=== PATIENT | female | born 1955 | race Caucasian/White ===

== ENCOUNTER → 2017-03-22 | Outpatient (CLI) | payer SELFPAY ==
[~2017-03-22] MED LIST: ISOPTIN SR TAB120 MG PO; LIPITOR DPS20 MG PO; MAALOX DPS30 ML PO; NICOTINE PATCH1 EAC5 TD; NORCO 5-325 TA1 EACH PO; OYSTER SHELL C500 MG PO; SURFAK DPS240 MG PO; TYLENOL DPS325 MG PO; VITAMIN D-32000 UNI1 PO; XANAX DPS0.5 MG PO
== END | disposition home or self-care (01) ==
LOC: RAD.S 10:40
DX: F17.210 Nicotine dependence, cigarettes, uncomplicated (principal); R91.8 Other nonspecific abnormal finding of lung field

== ENCOUNTER 2017-06-16 09:48 | Observation (INO) | payer SELFPAY ==
[~2017-06-16] VITALS: Ht 160 cm; Wt 46.6 kg
--- NOTE | 2017-06-17 13:05 | CO ---
ADMIT: 06/16/2017 RM/LOC: 523 [facility] MR#: [id number] 2620 [facility] [address] [place], [place] [address] MY NORRIS [address] [place] [address] Consultation SEX: F AGE: 61 : 1955 DATE OF CONSULTATION: 06/16/2017 ATTENDING PHYSICIAN: Colby Fajardo CONSULTING PHYSICIAN: Gerhard Crabtree MD REASON FOR CONSULTATION: Partial trauma. HISTORY OF PRESENT ILLNESS: My is a very pleasant, 61-year-old female, who apparently was in her house yesterday and going downstairs to do laundry where she fell. It appeared she fell on her left side developing left upper extremity and left hip pain. At that time, she just tried resting, but the pain did not resolve, so she decided to seek medical attention in our Emergency Department. Today, she was fully worked up to reveal a left radial fracture, superior and inferior rami fracture with communication to the acetabulum. She denies hitting her head or any loss of consciousness. She further denies any nausea, vomiting, lacerations abrasions, or double vision. PAST MEDICAL HISTORY: Significant for hypertension. PAST SURGICAL HISTORY: 1. Left wrist fracture as a kid. 2. T and A. ALLERGIES: ERYTHROMYCIN, TETRACYCLINE, AND SULFA. MEDICATIONS: Well documented in chart. FAMILY HISTORY: Noncontributory. SOCIAL HISTORY: The patient is a tobacco and alcohol user. Smokes about a pack a day and drinks the equivalent of six pack per week, but denies any illicit drug use. REVIEW OF SYSTEMS: CONSTITUTIONAL: The patient has occasional on and off chills, but denies any fevers or night sweats. The rest of comprehensive 10- point review of systems was performed and all other systems are negative. PHYSICAL EXAMINATION: GENERAL: The patient is in no acute distress. She is alert and oriented. HEENT: Head is normocephalic and atraumatic. EOMS are intact. Conjunctivae free of icterus, erythema, or pallor. Pinnae, free of deformities. Nose, midline. No tracheal deviation. NECK: Supple. SKIN: Negative for jaundice, clubbing, edema, pallor, or cyanosis. LUNGS: Normal respiratory effort. HEART: Distal pulses intact. Regular rate and rhythm. ABDOMEN: Soft, nondistended, and nontender. MUSCULOSKELETAL: Left upper extremity is in a splint. Decreased strength in ADMIT: 06/16/2017 RM/LOC: 523 [facility] MR#: [id number] [address] [address] MY NORRIS [address] [place] [address] Consultation SEX: F AGE: 61 : 1955 the left upper extremity. Neurovascular status is intact in all 4 extremities. Decreased active range of motion in the left lower extremity. No abrasions, lacerations, or ecchymoses noted upon exam. NEURO: Grossly intact. LABORATORY DATA: White blood cell count is 13.3. DIAGNOSTIC IMAGING: CT of the pelvis revealed superior and inferior rami fractures with communication to the acetabulum. Left arm film revealed a radial head fracture. ASSESSMENT: 1. Radial head fracture. 2. Inferior and superior rami fracture with communication to acetabulum. 3. Partial trauma. PLAN: Dr. Koehler has admitted the patient and Ortho has been consulted. All routine admitting orders have been activated, so start some incentive spirometry with the patient, and going to get her start her on oral pain medicine. We will see how she does tonight and monitor her clinical progress while in the hospital. The patient is in agreement of this plan, had all her questions answered, and would like to proceed. Thanks for the consultation of this patient. BARRY Mayer / Gerhard Crabtree MD / odalys JOB #: [id number] CC: Colby Fajardo, Attending Physician Colby Fajardo, Family Physician
--- NOTE | 2017-06-18 09:11 | ER ---
ADMIT: 06/16/2017 RM/LOC: 523 [facility] MR#: [id number] 2620 [facility] [address] [place], [place] [address] DORA NORRIS [facility] [place] [address] Emergency Room Report SEX: F AGE: 61 : 1955 DATE: 06/16/2017 CHIEF COMPLAINT: Fell down stairs, approximately 12 feet. INDICATION: Partial trauma, has left arm and hip pain. HISTORY OF PRESENT ILLNESS: A 61-year-old white female, missed stairs, did not pass out, just fell on padded stairs, but she does have the above- mentioned complaints. Ambulance called. She could not bear weight or get around at all. No loss of consciousness. She has no other associated complaints. PAST MEDICAL HISTORY: Significant disease; hypertension, anxiety, hyperlipidemia, mitral valve prolapse. MEDICATION: See list. ALLERGIES: TETRACYCLINES, ERYTHROMYCIN, AND SULFA. FAMILY AND SOCIAL HISTORY: In with . Smoker. Otherwise negative. REVIEW OF SYSTEMS: CONSTITUTIONAL: Negative. RESPIRATORY: Negative. MUSCULOSKELETAL: See history of present illness. Rest per dictation which is stable. PHYSICAL EXAM: GENERAL: Mild distress. VITAL SIGNS: Stable. Afebrile. HEENT: Negative. NECK: Supple. Trachea in the midline. RESPIRATORY: Lungs clear to auscultation. Otherwise, negative on exam. CARDIOVASCULAR: Circulation intact. HEART: Regular rate and rhythm. ABDOMEN: Nontender. No rebound, guarding, rigidity. There are no masses on palpation. SKIN: Warm, pink and dry. EXTREMITIES: She has pain with rotation, supination, pronation of the left elbow. Cannot bear weight. Decreased range of motion of the left hip area. Otherwise negative. NEUROLOGICAL: Alert and oriented. Motor and sensory function are grossly intact. LABORATORY DATA: CBC and chemistry essentially negative. Chest x-ray is negative. Pelvis shows a superior-inferior rami fracture. Left shoulder is negative. Left elbow does show a radial head fracture. Left hip is otherwise negative. CT scan of the pelvis shows the inferior and superior left pubic rami, but also a sacral fracture, nondisplaced. DIAGNOSES: ADMIT: 06/16/2017 RM/LOC: 523 [facility] MR#: [id number] 2620 [facility] [address] [place], [place] [address] [place] [address] [place] [address] Emergency Room Report SEX: F AGE: 61 : 1955 1. Pelvic fracture as described above. 2. Fall. 3. Radial head fracture on the left. TREATMENT/PROCEDURES: I did put a long arm splint on the left arm. She received Zofran 4, fentanyl initially, then 1 mg of Dilaudid. She is much more comfortable. I did speak with Dr. Crabtree, but there is nothing surgical on here, so this will be admitted with primary, but Ortho was consulted Dr. Ye as well. Dr. Koehler, admitting for Dr. Fajardo. CONDITION ON DISCHARGE: Serious but stable. Roscoe Hidalgo MD/ modl JOB #: [id number] CC: Colby Fajardo MD, Attending Physician Colby Fajardo MD, Family Physician
--- NOTE | 2017-06-19 07:20 | HP ---
ADMIT: 06/16/2017 RM/LOC: 523 [facility] MR#: [id number] [address] [address] DORA NORRIS [address] [place] [address] History and Physical SEX: F AGE: 61 : 1955 DATE OF SERVICE: CHIEF COMPLAINT: Pelvic and elbow pain after a fall at home. HISTORY OF PRESENT ILLNESS: This is a 61-year-old lady who lives at home and fell down some stairs on 06/15/2017. She said that she was able to get up and bear weight, although it hurts quite a bit in the left hip. She also had some pain around her left elbow. However, she did not want to come to the hospital on the weekend. The was Friday. She rested and overnight started to have more and more pain. She said every time she tried to move her left leg, she had "crackles" coming from the pelvic region and a lot more pain. This morning, the pain was too much to tolerate, so her brought her to the hospital. She was diagnosed with a left nondisplaced radial head fracture and pelvic fractures including the inferior and superior pubic rami as well as a sacral fracture. All with minimal displacement. She is admitted for pain control and orthopedic evaluation. When she first came in, she was initially treated as a trauma patient. She had no head trauma but does have a small bruise on her lip. The surgeon did not feel there was any need to pursue further evaluation other than the bony findings. She is admitted under the care of our Family Practice Group with Orthopedic consult. PAST MEDICAL HISTORY: Significant for hypertension, hyperlipidemia, and anxiety. ALLERGIES: TETRACYCLINE, ERYTHROMYCIN, SULFA. SOCIAL HISTORY: She smokes at least a pack per day and has for many years. Denies abuse of alcohol. She is , and her spouse accompanies her. 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 She has no health insurance. MEDICATIONS: 1. Verapamil ER 120 mg once a day. 2. Atorvastatin 20 mg daily. 3. Xanax 1 mg, she takes one-half to one as needed and typically says she will take one about 5 days a week. REVIEW OF SYSTEMS: GENERAL: Denies fevers, chills, headache. She said she tripped and did not have dizziness or syncope that caused her to fall. ENT: Positive for a little soreness on her upper lip. Denies any trouble swallowing. No vision changes. No double vision. CARDIOPULMONARY: Benign. She does smoke and says she has a chronic dry cough. Denies any hemoptysis. Denies chest pain. She feels sore on the left side of her body from her fall. GI: Benign. No nausea. No vomiting. : Bening. She has been able to void. No bloody urine. She occasionally gets a little bit of intermittent constipation over the years but denies any routine medicine for that. MUSCULOSKELETAL: Positive for left arm pain. Also positive for some low back pain and pain especially in the anterior part of the pelvis over the pubic ADMIT: 06/16/2017 RM/LOC: 523 [facility] MR#: [id number] [address] [place] [id number] DORA NORRIS [address] [place] [address] History and Physical SEX: F AGE: 61 : 1955 bone. PHYSICAL EXAMINATION: VITAL SIGNS: Blood pressure is 109/68. She was afebrile in the emergency room, and on admission to the floor, temp is 99.9. Oxygenation is 100% on room air. GENERAL: She is sitting in bed, tilted up in the bed with her left arm wrapped in a splint and propped up on a pillow. She is alert, oriented. She has a little bit of hoarseness to her voice and a slight cough after she starts talking. However, she has no obvious dyspnea. She is a thin lady, in no acute distress. HEENT: No scleral icterus. Mucous membranes are moist. She has a small 1 cm bruise on the upper lip on the left side of her mouth. There is no bleeding. She is able to open and close her mouth normally and tongue extends in the midline. LUNGS: Diminished throughout. HEART: Regular. ABDOMEN: Normal bowel sounds throughout. She is not distended. 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 On the left hand, her fingers are exposed and she can move them normally and they are warm and dry with good capillary refill. Lower extremities with no edema. She is able to internally and externally rotate the right hip. When she attempts to rotate the left hip while she is lying supine, she complains of severe pain in the pubic area. I did not get her up to try to stand. LAB AND X-RAY DATA: Her electrolytes are normal. Creatinine is 0.4 and BUN is just 4, likely reflecting her low body mass and muscle mass. Her liver enzymes are all normal. White count is 11.6, hemoglobin 13.3, hematocrit 39.0. She has macrocytosis with an MCV of 103.4 and MCH 35.3. RDW is normal and platelet count is 273. CT and x-ray testing showed a left radial head fracture which is nondisplaced. She also has a left superior and inferior pubic rami fractures, and on CAT scan, it was noted that she has a sacral fracture as well. ASSESSMENT: 1. Left radial head fracture. 2. Left-sided pelvic fractures. 3. Osteoporosis. 4. Hypertension, treated. 5. Hyperlipidemia, treated. 6. Chronic anxiety. 7. Chronic nicotine use. PLAN: She is admitted for pain control and physical and occupational therapy. I am going to check a urinalysis to rule out any blood in the urine. We will treat her preemptively with a stool softener. We will use pharmacologic VTE prophylaxis. Dr. Ye is consulting and does not plan any sort of operation or surgical ADMIT: 06/16/2017 RM/LOC: 523 [facility] MR#: [id number] 26[address] [facility] [address] [place], [place] [address] DORA NORRIS [address] [place] [address] History and Physical SEX: F AGE: 61 : 1955 repairs. She should quit smoking and is comfortable trying the nicotine patch and said she is motivated to try to quit. I noted in past records at our office, she had a bone density scan just earlier this year and has osteoporosis. She was going to start Prolia but lost her health insurance and has not had any treatment for the osteoporosis at this point. We will consider starting medication depending on whether she agrees and what is most feasible for her. Dr. Fajardo is her primary physician and will follow her during the hospital stay. I have asked Social Work to see her to assist with financial needs and with possible rehabilitation placement. Julita Koehler MD/ odalys JOB #: [id number] CC: Colby Fajardo, Attending Physician Colby Fajardo, Family Physician
[2017-06-19] MEDS ORDERED: ISOPTIN SR TAB120 MG PO (19:36)
[2017-06-19] MEDS ORDERED: NORCO 5-325 TA1 EACH PO (19:37)
[2017-06-19] MEDS ORDERED: VITAMIN D-32000 UNI1 PO (19:37)
[2017-06-19] MEDS ORDERED: LIPITOR DPS20 MG PO (19:37)
[2017-06-19] MEDS ORDERED: OYSTER SHELL C500 MG PO (19:37)
[2017-06-19] MEDS ORDERED: SURFAK DPS240 MG PO (19:37)
[2017-06-19] MEDS ORDERED: XANAX DPS0.5 MG PO (19:37)
[2017-06-19] MEDS ORDERED: MAALOX DPS30 ML PO (19:38)
[2017-06-19] MEDS ORDERED: NICOTINE PATCH1 EAC5 TD (19:38)
[2017-06-19] MEDS ORDERED: TYLENOL DPS325 MG PO (19:39)
== END 2017-06-18 15:00 | disposition home or self-care (01) ==
LOC: ER 09:48 → 5MS 13:20
PROVIDERS: ADMIT Family Medicine
DX: S52.122A Displaced fracture of head of left radius, initial encounter for closed fracture (principal); S32.9XXA Fracture of unspecified parts of lumbosacral spine and pelvis, initial encounter for closed fracture; M81.0 Age-related osteoporosis without current pathological fracture; I10 Essential (primary) hypertension; E78.5 Hyperlipidemia, unspecified; F41.9 Anxiety disorder, unspecified; F17.210 Nicotine dependence, cigarettes, uncomplicated; W10.9XXA Fall (on) (from) unspecified stairs and steps, initial encounter; Y92.009 Unspecified place in unspecified non-institutional (private) residence as the place of occurrence of the external cause; Z98.890 Other specified postprocedural states; Z88.1 Allergy status to other antibiotic agents; Z88.2 Allergy status to sulfonamides